=== PATIENT | female | born 2005 | race Two or more races ===

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

== ENCOUNTER 2024-03-25 18:46 | Emergency (ER) | payer MEDICAID ==
[~2024-03-25] VITALS: Ht 167.6 cm; Wt 95.6 kg
[2024-03-25] MEDS: SODIUM CHLORIDE 0.9% 1,000 ML IV ONE (21:07)
[2024-03-25] MEDS: ACETAMINOPHEN 325 MG TAB PO ONE (21:17)
[2024-03-25] MEDS: METOCLOPRAMIDE HCL 5MG/ml INJ 2ml VIAL IV ONE (21:29)
[2024-03-25] MEDS: KETOROLAC TROMETH 30 MG/ML 1ML VIAL IV ONE (21:30)
[2024-03-25] MEDS: DexAMETHasone SOD PHOS 10MG/1ML VIAL INJ IV ONE (21:35)
[2024-03-26 00:58] VITALS: BP 116/70; PULSE 80; RESP 18; TEMP 98; O2SAT 99
== END 2024-03-26 01:00 | disposition home or self-care (01) ==
LOC: ER 18:46
DX: G43.909 Migraine, unspecified, not intractable, without status migrainosus (principal); B34.9 Viral infection, unspecified
CPT/HCPCS: 96361; 96374; 96375; 99284; J1100; J1885; J2765; J7030